=== PATIENT | female | born 1955 | race Caucasian/White ===

== ENCOUNTER → 2018-09-12 | Outpatient (CLI) | payer BC ==
--- NOTE | 2018-09-12 15:56 | CARD ---
MR#: [id number] Date of Study: 09/12/2018 Ordering Physician: RISSA DE LUNA, Referring Physician: RISSA DE LUNA, Tech: Sara Sanabria ISABELLA APPROVED REPORT EXAM: Two-dimensional and M-mode echocardiogram with Doppler and color Doppler. Other Information Quality : AverageHR: 73bpm Rhythm : NSR INDICATION Elevated BNP 2D DIMENSIONS RVDd3.1 (2.9-3.5cm)Left Atrium(2D)3.2 (1.6-4.0cm) IVSd0.9 (0.7-1.1cm)Aortic Root(2D)3.3 (2.0-3.7cm) LVDd5.0 (3.9-5.9cm)LVOT Diameter2.0 (1.8-2.4cm) PWd0.8 (0.7-1.1cm)LVDs3.4 (2.5-4.0cm) FS (%) 31.7 %SV69.7 ml LVEF(%)59.4 (>50%) M-Mode DIMENSIONS Left Atrium(MM)3.51 (2.5-4.0cm)Aortic Root3.38 (2.2-3.7cm) Aortic Valve AoV Peak Hernando.147.2cm/sAoV VTI28.6cm AO Peak GR.8.7mmHgLVOT Peak Hernando.121.1cm/s AO Mean GR.4mmHgAVA (VMAX)2.50cm2 XIOMY (VTI)2.60av1WD P 1/2 [id number] Mitral Valve MV E Tebyvgei05.3cm/sMV E Peak Gr.4mmHg MV DECEL [id number] A Sxiyqrql83.8cm/s MV E Mean Gr.1mmHgE/A Ratio1.0 MV A Veaihuzx603hy Pulmonary Valve PV Peak Qhvknfhk18.7cm/s Tricuspid Valve TR P. Eoskywrm299gj/sRAP YMEQBXGX5cxHk TR Peak Gr.12ayCtAFXF62tkSr Pulmonary Vein S1 Fhlyyfaz18.2cm/sD2 Ptipoout54.3cm/s PVa rsaqkfmx31kgdg LEFT VENTRICLE The left ventricle is normal size. There is normal left ventricular wall thickness. The left ventricu lar systolic function is normal and the ejection fraction is within normal range. The Ejection Fracti on is 55-60%. There is normal LV segmental wall motion. Transmitral Doppler flow pattern is Grade I-a bnormal relaxation pattern. RIGHT VENTRICLE The right ventricle is normal size. There is normal right ventricular wall thickness. The right ventr icular systolic function is normal. ATRIA The left atrium size is normal. The right atrium size is normal. The interatrial septum is intact wit h no evidence for an atrial septal defect or patent foramen ovale as noted on 2-D or Doppler imaging. AORTIC VALVE The aortic valve is normal in structure and function. The aortic valve is trileaflet. Doppler and Col or Flow revealed mild aortic regurgitation. There is no significant aortic valvular stenosis. There i s no aortic valvular vegetation. MITRAL VALVE The mitral valve is normal in structure and function. There is no evidence of mitral valve prolapse. There is no mitral valve stenosis. Doppler and Color-flow revealed trace mitral regurgitation. TRICUSPID VALVE The tricuspid valve is normal in structure and function. Doppler and Color Flow revealed trace tricus pid regurgitation. The PA pressure was estimated at 32 mmHg. There is no tricuspid valve prolapse or vegetation. There is no tricuspid valve stenosis. PULMONIC VALVE The pulmonary valve is normal in structure and function. Doppler and Color Flow revealed trace pulmon ic valvular regurgitation. There is no pulmonic valvular stenosis. GREAT VESSELS The aortic root is normal in size. The ascending aorta is normal in size. The IVC is normal in size a nd collapses >50% with inspiration. PERICARDIAL EFFUSION There is no evidence of significant pericardial effusion. Critical Notification Critical Value: No <Conclusion> The left ventricle is normal size. The left ventricular systolic function is normal and the ejection fraction is within normal range. The Ejection Fraction is 55-60%. There is no significant aortic valvular stenosis. Doppler and Color Flow revealed mild aortic regurgitation. Doppler and Color-flow revealed trace mitral regurgitation. Doppler and Color Flow revealed trace tricuspid regurgitation. The PA pressure was estimated at 32 mmHg. Signed by : Daniel Brown MD Electronically Approved : 09/12/2018 15:55:37
== END | disposition home or self-care (01) ==
LOC: ECHO 13:38
PROVIDERS: ATTEND Family Medicine
DX: I35.1 Nonrheumatic aortic (valve) insufficiency (principal)
CPT/HCPCS: 93306

== ENCOUNTER → 2019-07-22 | Outpatient (CLI) | payer MEDICARE, BC ==
[~2019-07-22] MED LIST: CELE200C PO; CETI10TA24 PO; FAMO-63 PO; OMEP40CA45 PO; TRAM50TA PO
[2019-07-22 09:25] LABS: BASO # 0.1 x10^3/uL (0.0-0.2); BASO % 1 % (0-3); EOS # 0.4 x10^3/uL (0.0-0.7); EOS % 6 % (0-3); HEMATOCRIT 40.2 % (36.0-47.0); HEMOGLOBIN 13.4 g/dL (12.0-15.5); LYMPH # 2.2 x10^3/uL (1.0-4.8); LYMPH % 37 % (24-48); MEAN CORPUSCULAR HEMOGLOBIN 29 pg (25-35); MEAN CORPUSCULAR HGB CONC 33 g/dL (31-37); MEAN CORPUSCULAR VOLUME 88 fL (79-100); MONO # 0.5 x10^3/uL (0.0-1.1); MONO % 8 % (0-9); NEUT # 2.9 x10^3/uL (1.8-7.7); NEUT % 48 % (31-73); PLATELET COUNT 253 x10^3/uL (140-400); RED BLOOD COUNT 4.59 x10^6/uL (3.50-5.40); RED CELL DISTRIBUTION WIDTH 14.3 % (11.5-14.5)
[2019-07-22 09:31] LABS: PROTHROMBIN TIME PATIENT 12.3 SEC (11.7-14.0)
[2019-07-22 09:37] LABS: ALBUMIN 3.4 g/dL (3.4-5.0); CALCIUM 8.7 mg/dL (8.5-10.1); CREATININE 0.9 mg/dL (0.6-1.0); GFR 62.8; POTASSIUM 4.1 mmol/L (3.5-5.1)
--- NOTE | 2019-07-22 13:22 | EKG ---
[facility] [address] [place] [address] Test Date: 2019-07-22 Test Time: 13:11:42 Pat Name: MARILEE DUENAS Department: Room: Gender: F Commodity Lead: RUMA : 1955 Requested By: MJ GARCIA Order Number: [id number] Reading MD: Abner Wheeler Measurements Intervals [place] Rate: 69 P: 24 DE: 136 QRS: 7 QRSD: 78 T: -20 QT: 378 QTc: 406 Interpretive Statements SINUS RHYTHM T ABNORMALITY IN ANTERIOR LEADS ABNORMAL ECG Electronically Signed On 07-22-2019 15:05:15 CDT by Abner Wheeler
--- NOTE | 2019-07-22 14:38 | RAD ---
CHEST PA LATERAL History: Hypertension. Preoperative right knee surgery. Comparison: None. Findings: Frontal and lateral views of the chest were obtained. The cardiomediastinal silhouette is normal. Pulmonary vasculature is normal. The lungs are clear. No pleural effusion or pneumothorax is seen. There is no acute bone abnormality. IMPRESSION: No acute cardiopulmonary process. Electronically signed by: Frankie Shelley MD (07/22/2019 2:35 PM) [id number]
== END | disposition home or self-care (01) ==
LOC: SURGPAT 13:19
PROVIDERS: ATTEND Orthopaedic Surgery
DX: Z01.818 Encounter for other preprocedural examination (principal); R94.31 Abnormal electrocardiogram [ECG] [EKG]; M17.12 Unilateral primary osteoarthritis, left knee; I10 Essential (primary) hypertension; Z88.0 Allergy status to penicillin; Z88.8 Allergy status to other drugs, medicaments and biological substances
CPT/HCPCS: 36415; 71046; 80048; 82040; 82306; 83036; 85025; 85610; 85651; 85730; 87641; 93005

== ENCOUNTER → 2019-11-14 | Outpatient (CLI) | payer MEDICARE, BC ==
[~2019-11-14] MED LIST changes: +CELE400C PO; +FERR-36 PO; +HYDR-2761 PO; +HYDR-3135 PO; +VITA25006 PO; +WARF3TAB50 PO; +WARF5TAB2 PO
[2019-11-14 10:37] LABS: BASO # 0.1 x10^3/uL (0.0-0.2); BASO % 1 % (0-3); EOS # 0.3 x10^3/uL (0.0-0.7); EOS % 5 % (0-3); HEMATOCRIT 43.7 % (36.0-47.0); HEMOGLOBIN 14.4 g/dL (12.0-15.5); LYMPH # 2.5 x10^3/uL (1.0-4.8); LYMPH % 40 % (24-48); MEAN CORPUSCULAR HEMOGLOBIN 29 pg (25-35); MEAN CORPUSCULAR HGB CONC 33 g/dL (31-37); MEAN CORPUSCULAR VOLUME 87 fL (79-100); MONO # 0.4 x10^3/uL (0.0-1.1); MONO % 7 % (0-9); NEUT # 2.9 x10^3/uL (1.8-7.7); NEUT % 47 % (31-73); PLATELET COUNT 260 x10^3/uL (140-400); RED BLOOD COUNT 4.99 x10^6/uL (3.50-5.40); RED CELL DISTRIBUTION WIDTH 14.5 % (11.5-14.5); WHITE BLOOD COUNT 6.2 x10^3/uL (4.0-11.0)
[2019-11-14 10:46] LABS: ALBUMIN 3.6 g/dL (3.4-5.0); C-REACTIVE PROTEIN 2.8 mg/L (0-3.3); CREATININE 1.1 mg/dL (0.6-1.0); GFR 49.8; POTASSIUM 3.8 mmol/L (3.5-5.1); PROTHROMBIN TIME PATIENT 12.6 SEC (11.7-14.0)
[2019-11-15 00:07] LABS: HEMOGLOBIN A1C 6.1 % (4.8-5.6)
== END | disposition home or self-care (01) ==
LOC: SURGPAT 09:56
PROVIDERS: ATTEND Orthopaedic Surgery
DX: Z01.818 Encounter for other preprocedural examination (principal); Z11.59 Encounter for screening for other viral diseases; M17.12 Unilateral primary osteoarthritis, left knee; I10 Essential (primary) hypertension; Z79.899 Other long term (current) drug therapy; Z88.0 Allergy status to penicillin
CPT/HCPCS: 36415; 80048; 82040; 82306; 83036; 85025; 85610; 85730; 86140; 87641; U0003

== ENCOUNTER 2019-11-19 10:07 | Inpatient (IN) | payer MEDICARE, BC ==
[2019-11-19] VITALS (9 sets, daily range): BP systolic 104–123; BP diastolic 58–72
[~2019-11-19] VITALS: Ht 154.9 cm; Wt 93.0 kg
[~2019-11-19 10:07] MED LIST changes: -CELE400C PO; +CELECOXIB 100 MG CAPSULE. PO PRN; -CETI10TA24 PO; +CETI10TA74 PO; +DEXAMETHASONE SOD PHOS 4 MG/ML VIAL ONE; -FERR-36 PO; +GABAPENTIN 300 MG CAPSULE. PO PRN; -HYDR-3135 PO; +IV RINGERS,LACTATED 1000ML 1,000 ML IV SCH; +LIDOCAINE 2% PF 5 ML VIAL. ONE; +MORPHINE SULFATE 5 MG, KETOROLAC 30MG VIAL 30 MG, ROPIVacaine 0.5% PF 60 ML, EPINEPHrin... INT ART ONE; +ONDANSETRON PF 4 MG/2 ML VIAL. IV PRN; +ONDANSETRON PF 4 MG/2 ML VIAL. ONE; +PROCHLORPERAZINE 10 MG/2 ML VIAL. IV PRN; +PROPOFOL 10 MG/ML (20ML) VIAL. IV ONE; -WARF3TAB50 PO; -WARF5TAB2 PO
[2019-11-19] MEDS ORDERED: FERR-36 PO (10:39)
[2019-11-19] MEDS ORDERED: WARF5TAB2 PO (10:40)
--- NOTE | 2019-11-19 10:40 | NUR ---
PT ALLERGY TO PCN, VERIFIED WITH DR GARCIA. STATES UNLESS KNOWN ANAPHYLAXIS REACTION, PROCEED WITH ANCEF. PT UNAWARE OF WHAT ALLERGY TO PCN, STATES WAS YOUNG AND MOTHER JUST STATED HAD AN UNKOWN ALLERGY TO IT. WILL PROCEED DIRECTED WITH ANCEF 2GM PREOP.
[2019-11-19] MEDS ORDERED: CELE400C PO (10:41)
[2019-11-19] MEDS ORDERED: ACETAMINOPHEN 500 MG TABLET PO ONE ×2 (10:44→11:15)
[2019-11-19] MEDS ORDERED: FAMOTIDINE 20 MG/2 ML VIAL ONE (11:29)
[2019-11-19] MEDS ORDERED: MIDAZOLAM HCL/PF 5 MG/5 ML VIAL. ONE (11:29)
[2019-11-19] MEDS ORDERED: VANCOMYCIN 1 GM VIAL. ONE (11:32)
[2019-11-19] MEDS: IV NORMAL SALINE 1000ML BAG 1,000 ML IV SCH ×2 (11:34→12:05)
[2019-11-19] MEDS ORDERED: SEVOFLURANE > 120 MINUTES. IH ONE (11:39)
[2019-11-19] MEDS ORDERED: oxyCODONE IR 5 MG TABLET PO PRN (11:45)
[2019-11-19] MEDS ORDERED: diphenhydrAMINE 50 MG/ML VIAL IVP PRN (11:45)
[2019-11-19] MEDS ORDERED: fentaNYL PF VIAL 100 MCG/2 ML VIAL IVP PRN (11:45)
[2019-11-19] MEDS ORDERED: DEXTROSE 50% 25 GM / 50ML DISP.SYRIN. IV PRN (11:45)
[2019-11-19] MEDS ORDERED: ZOLPIDEM 5 MG TABLET. PO PRN (11:45)
[2019-11-19] MEDS ORDERED: PROCHLORPERAZINE 5 MG TABLET. PO PRN (11:45)
[2019-11-19] MEDS ORDERED: CALCIUM CARBONATE 500 MG TAB.CHEW PO PRN (11:45)
[2019-11-19] MEDS ORDERED: MORPHINE SULFATE 2 MG/ML VIAL. IVP PRN (11:45)
[2019-11-19] MEDS ORDERED: 0.9 % SODIUM CHLORIDE 10 ML DISP.SYRIN. IV PRN (11:45)
[2019-11-19] MEDS: ONDANSETRON PF 4 MG/2 ML VIAL. IVP SCH ×3 (12:00→22:35)
[2019-11-19] MEDS: ONDANSETRON ODT 4 MG TAB.RAPDIS. PO SCH ×3 (12:00→22:40)
[2019-11-19] MEDS ORDERED: TRANEXAMIC ACID 1,000 MG in IV NORMAL SALINE 50ML 50 ML INJ ONE ×2 (12:00→13:00)
--- NOTE | 2019-11-19 13:27 | PDOC4 ---
Operative Note Operative Note Date of surgery: 11/19/2019 Preoperative diagnosis: Degenerative joint disease left knee Postoperative diagnosis: Same Operative procedure: Left total knee arthroplasty Surgeon: Gale Jawbone Puller: Michael bazan Anesthesia: General Estimated blood loss: 25 cc Complications: None Operative indications: Please see my previous clinic note and dictated history and physical of today for detailed operative indications Operative text: Patient was identified procedure verified patient placed in the supine position on the operating table. After adequate amounts of general anesthesia were administered the left lower extremity was prepped and draped in the standard sterile fashion with a thigh tourniquet. After timeout was performed patient procedure identified and verified the left lower extremity was exsanguinated by elevation and tourniquet inflated to 350 mils of mercury and a midline incision was made with a medial parapatellar approach patella was everted fat pad was excised she was noted to have most notable wear in the medial compartment with no evidence of flexion contracture. The intramedullary femoral guide was drilled and placed for a standard distal femur cut. Distal femur was sized at a size 5 and translated 2 mm superiorly to avoid any notching AP chamfer cuts were made cruciate ligaments were excised as they were compromised and tibial alignment guide was aligned to the second toe with care. With retractors protecting the collateral ligaments and posterior structures tibial cut was made and tibia sized at a size 3. Flexion extension gaps were assessed and were excellent medial lateral stability balance. Tibia was drilled and broached with a size 3 component a size 5 posterior stabilized femoral trial was placed after excising the bone in the box area. A 26 mm bi concave patella was reamed and noted excellent tracking. Trial components were removed thorough irrigation carried out with normal saline solution and bleeding points were controlled by electrocautery. The following [employer] components were cemented in place using polymethyl methacrylate cement: A size 3 journey 2 tibial component nonporous. A size 5 Oxinium posterior stabilized femoral component. A 26 mm bi concave patella component, and a 11 mm articular insert provided excellent balance with full range of motion. After cement was dry and excess cement removed a size 11 mm journey 2 articular insert was locked into place, Hemovac drain and articular pain catheter were placed pain catheter mixture was injected throughout the joint capsule, 1 g vancomycin was sprinkled throughout the joint capsule and closure accomplished with #2 Ethibond suture in an interrupted fashion reinforced with #1 PDS strata fix suture. Subcutaneous closure with buried Vicryl suture subcuticular 3-0 strata fix Monocryl followed by a flora dressing with Acticoat. Toes were noted to be warm pink following deflation of the tourniquet and patient was returned to recovery room in stable condition having tolerated procedure well. Michael Butt was present for the procedure and assisted in the positioning prepping draping retraction closure and dressings MJ GARCIA MD Nov 19, 2019 13:27
[2019-11-19 13:45] LABS: PROTHROMBIN TIME PATIENT 13.6 SEC (11.7-14.0)
[2019-11-19] MEDS ORDERED: fentaNYL PF VIAL 100 MCG/2 ML VIAL ONE (14:08)
[2019-11-19] MEDS ORDERED: IV RINGERS,LACTATED 1000ML 1,000 ML IV SCH (14:08)
[2019-11-19] MEDS: fentaNYL PF VIAL 100 MCG/2 ML VIAL IV PRN ×2 (14:12→14:32)
[2019-11-19] MEDS ORDERED: fentaNYL PF VIAL 100 MCG/2 ML VIAL IV PRN (14:15)
[2019-11-19] MEDS ORDERED: PROCHLORPERAZINE 10 MG/2 ML VIAL. IV PRN (14:15)
[2019-11-19] MEDS ORDERED: LIDOCAINE 1% PF 2 ML VIAL. ID PRN (14:15)
[2019-11-19] MEDS ORDERED: ONDANSETRON PF 4 MG/2 ML VIAL. IV PRN (14:15)
[2019-11-19] MEDS ORDERED: HYDROmorphone 2 MG/ML VIAL IV PRN (14:15)
--- NOTE | 2019-11-19 14:15 | RAD ---
Left knee 2 views. HISTORY: Post arthroplasty 2 views left knee show a total joint prosthesis in place. There is no acute fracture. There is a drainage tube. IMPRESSION: 1. Operative changes from left knee arthroplasty. Electronically signed by: Narayan Garcia MD (11/19/2019 2:12 PM) [facility]
[2019-11-19] MEDS: MORPHINE SULFATE 2 MG/ML VIAL. IV PRN ×2 (14:38→14:55)
[2019-11-19] MEDS ORDERED: HYDROmorphone 2 MG/ML VIAL ONE (15:05)
--- NOTE | 2019-11-19 15:15 | NUR ---
Rec'd from PACU per bed, sleeping, arouses when name called, states discomfort level 8/10, falls back to sleep, LLE elevated with ice pack for pain management, JN wolff & SCD on RLE, BRETT to LLE, IVF infusing into left dorsal hand, O2 @ 3L/nc, side rails up X3, call light in lap, no family members present at this time
[2019-11-19] MEDS ORDERED: WARFARIN 7.5 MG TABLET. PO ONE (16:00)
[2019-11-19] MEDS: PANTOPRAZOLE 40 MG TABLET.DR. PO SCH (16:30)
[2019-11-19] MEDS: FERROUS SULFATE 325 MG TABLET. PO SCH (18:12)
[2019-11-19] MEDS: KETOROLAC 30MG VIAL 30 MG, BUPIVACAINE MPF 0.25% 20 ML, EPINEPHrine 0.5 MG in TOTAL VOL... INT ART SCH (18:14)
--- NOTE | 2019-11-19 18:41 | NUR ---
IAC med unable to infuse.
[2019-11-19] MEDS: oxyCODONE IR 5 MG TABLET PO PRN (22:38)
--- NOTE | 2019-11-19 22:45 | NUR ---
Reattempted to infuse IAC without success.
[2019-11-20] MEDS: oxyCODONE IR 5 MG TABLET PO PRN ×5 (03:03→22:05)
[2019-11-20 03:10] VITALS: BP 124/62
[2019-11-20 05:05] LABS: HEMATOCRIT 36.9 % (36.0-47.0); HEMOGLOBIN 12.3 g/dL (12.0-15.5)
[2019-11-20 05:07] VITALS: BP 112/57
[2019-11-20] MEDS: PANTOPRAZOLE 40 MG TABLET.DR. PO SCH (05:43)
[2019-11-20] MEDS: KETOROLAC 30MG VIAL 30 MG, BUPIVACAINE MPF 0.25% 20 ML, EPINEPHrine 0.5 MG in TOTAL VOL... INT ART SCH (05:44)
[2019-11-20] MEDS: ONDANSETRON PF 4 MG/2 ML VIAL. IVP SCH (05:44)
[2019-11-20] MEDS: traMADol 50 MG TABLET PO SCH ×3 (05:45→17:09)
[2019-11-20] MEDS: ONDANSETRON ODT 4 MG TAB.RAPDIS. PO SCH (05:45)
[2019-11-20] MEDS ORDERED: MAGNESIUM HYDROXIDE 2,400 MG/30 ML ORAL.SUSP. PO PRN (06:00)
--- NOTE | 2019-11-20 07:42 | PDOC ---
GENERAL General: vss and afebrile. awake and alert. thinks pain is decently controlled. chest clear, heart regular, abdomen benign. Hb 12.3 and INR 1.4. encouraged therapy. continue same. VITAL SIGNS/I&O Vital Signs/I&O: Vital Signs Date Time Temp Pulse Resp B/P (MAP) Pulse Ox O2 Delivery O2 Flow Rate FiO2 11/20/19 05:07 98.0 66 18 112/57 (75) 97 Room Air 98.0 11/19/19 17:45 2.0 I & O 11/19/19 11/19/19 11/20/19 15:00 23:00 07:00 Intake Total 600 ml 200 ml 700 ml Output Total 25 ml 820 ml 240 ml Balance 575 ml -620 ml 460 ml ALLERGIES Allergies: Allergies Coded Allergies Type Severity Reaction Last Updated Verified Penicillins Allergy Intermediate 11/18/19 Yes Sulfa (Sulfonamide Antibiotics) Adverse Reaction Intermediate Hives 11/14/19 Yes nitrofurantoin Adverse Reaction Intermediate Hives 11/14/19 Yes phentermine Adverse Reaction Intermediate Hives 11/14/19 Yes pregabalin Adverse Reaction Intermediate Hives 11/14/19 Yes sulfamethoxazole Adverse Reaction Intermediate Hives 11/14/19 Yes trimethoprim Adverse Reaction Intermediate Hives 11/14/19 Yes MEDS Medications: Current Medications Medications (Trade) Dose Ordered Sig/Conner Route PRN Reason Start Time Stop Time Status Last Admin Dose Admin Acetaminophen (Tylenol) 1,000 mg 1X ONCE PO 11/19/19 11:15 11/19/19 11:16 DC 11/19/19 11:00 Vancomycin HCl (Vancomycin) 1 gm STK-MED ONCE .ROUTE 11/19/19 11:32 11/19/19 11:33 DC 11/19/19 12:05 Tranexamic Acid 1000 mg/Sodium Chloride 60 ml @ 60 mls/hr 1X PERIOP ONCE INJ 11/19/19 12:00 11/19/19 12:59 DC 11/19/19 11:50 Tranexamic Acid 1000 mg/Sodium Chloride 60 ml @ 60 mls/hr 1X PERIOP ONCE INJ 11/19/19 13:00 11/19/19 13:59 DC 11/19/19 13:05 Morphine Sulfate (Morphine Sulfate) 2 mg PRN Q1HR PRN IVP PAIN 11/19/19 11:45 11/19/19 18:12 Warfarin Sodium (Coumadin) 7.5 mg 1X ONCE PO 11/19/19 16:00 11/19/19 16:01 DC 11/19/19 18:12 Ferrous Sulfate (Feosol) 325 mg BIDWMEALS PO 11/19/19 17:00 11/19/19 18:12 Sodium Chloride 1,000 ml @ 40 mls/hr Q24H IV 11/19/19 11:34 11/19/19 12:05 Ketorolac Tromethamine 30 mg/Bupivacaine HCl 20 ml/ Epinephrine HCl 0.5 mg/ Miscellaneous 43 ml @ 258 mls/hr Q12H INT ART 11/19/19 18:00 11/20/19 06:09 DC 11/19/19 18:14 Ondansetron HCl (Zofran) 4 mg Q6HRS IVP 11/19/19 12:00 11/20/19 06:01 DC 11/20/19 05:44 Oxycodone HCl (Roxicodone) 10 mg PRN Q4HRS PRN PO Pain score 7-11/19/19 11:45 11/20/19 03:03 Cefazolin Sodium/ Dextrose 50 ml @ 100 mls/hr Q6H IV 11/19/19 11:45 11/19/19 14:41 DC 11/19/19 11:35 Pantoprazole Sodium (Protonix) 40 mg DAILYAC PO 11/19/19 16:30 11/20/19 05:43 Fentanyl Citrate (Fentanyl 2ml Vial) 50 mcg PRN Q5MIN PRN IV MODERATE TO SEVERE PAIN 11/19/19 14:15 11/19/19 15:56 DC 11/19/19 14:32 Morphine Sulfate (Morphine Sulfate) 1 mg PRN Q10MIN PRN IV SEVERE PAIN 7-11/19/19 14:15 11/19/19 15:56 DC 11/19/19 14:55 Hydromorphone HCl (Dilaudid) 0.5 mg PRN Q10MIN PRN IV SEV PAIN, Second choice 11/19/19 14:15 11/19/19 15:56 DC 11/19/19 15:07 Cefazolin Sodium/ Dextrose 50 ml @ 100 mls/hr Q6H IV 11/19/19 17:00 11/20/19 05:29 DC 11/20/19 05:10 LAB Lab: Laboratory Tests Test 11/19/19 10:50 11/20/19 04:40 Prothrombin Time 13.6 SEC (11.7-14.0) 17.0 SEC (11.7-14.0) H Prothrombin Time INR 1.1 (0.8-1.1) 1.4 (0.8-1.1) H Hemoglobin 12.3 g/dL (12.0-15.5) Hematocrit 36.9 % (36.0-47.0) Mean Corpuscular Hemoglobin Concent 33 g/dL (31-37) Laboratory Tests 11/20/19 04:40 Justicifation of Admission Dx: Justifications for Admission: Justification of Admission Dx: Yes Comments: RISSA YEH MD Nov 20, 2019 07:42
[2019-11-20] MEDS: FERROUS SULFATE 325 MG TABLET. PO SCH ×2 (08:00→17:00)
[2019-11-20] MEDS: ACETAMINOPHEN 500 MG TABLET PO SCH ×3 (08:32→20:33)
[2019-11-20] MEDS: SENNOSIDES/DOCUSATE 8.6/50MG TABLET. PO SCH (08:32)
[2019-11-20] MEDS ORDERED: MELOXICAM 7.5 MG TABLET PO SCH (09:00)
[2019-11-20] MEDS: MULTIVITAMIN with MINERAL TABLET. PO SCH (09:00)
[2019-11-20] MEDS: ONDANSETRON ODT 4 MG TAB.RAPDIS. PO PRN ×2 (11:13→16:56)
[2019-11-20] MEDS: IV NORMAL SALINE 1000ML BAG 1,000 ML IV SCH (11:34)
[2019-11-20] MEDS ORDERED: ONDANSETRON PF 4 MG/2 ML VIAL. IVP PRN (12:00)
--- NOTE | 2019-11-20 15:04 | NUR ---
Pharmacy Warfarin Dosing Note S:Pharmacy consulted to assist with anticoagulation therapy started 11/19/19 with target INR: O:MARILEE DUENAS is a 64 year old F with TKA LABS: Last INR: 1.4 Last HGB: 12.3 Last HCT: 36.9 Last PLT: Last dose of 7.5 mg given on 11/19/19 at 1700 Previous Regimen: Vitamin K given: N Drug Interaction Changes: Ongoing Drug Interactions: MELOXICAM A:INR of 1.4 is below desired range. Target range for this patient is: P: Warfarin dose: 5 mg Today at 1600 Bridge Therapy: None Next INR due IN AM Pharmacy anticoagulation service will continue to follow. AGUSTINA VENTURA [facility], 11/20/19 [id number]
[2019-11-20] MEDS: CELECOXIB 100 MG CAPSULE. PO SCH (15:24)
--- NOTE | 2019-11-20 15:56 | CONS ---
DATE OF CONSULTATION: PHYSICIAN REQUESTING CONSULTATION: Dr. Osbaldo Beasley. CHIEF COMPLAINT AND HISTORY OF PRESENT ILLNESS: This 64-year-old white female who is well known to me for followup in the office. She has end-stage arthritis of her left knee and had a total knee replacement on 11/19/2019. We are following her medically for postoperatively. PAST MEDICAL HISTORY: Remarkable for GERD, osteoarthritis, recurrent sinus, and urinary tract infections. MEDICATIONS: Brought with the patient, listed on the computer. ALLERGIES: SHE IS ALLERGIC TO PENICILLIN. SOCIAL HISTORY: She is nonsmoker, nondrinker, does not use drugs, is retired, lives at home with her . FAMILY HISTORY: Positive for diabetes, Parkinson's disease and a history of leukemia. REVIEW OF SYSTEMS: Remarkable for left knee pain and she would expect following a knee replacement. Otherwise, completely negative review of systems. PHYSICAL EXAMINATION: GENERAL: She is a well-developed, well-nourished white female, in no acute distress. VITAL SIGNS: Stable. She is afebrile. Hemoglobin postop is 12.3 and INR is 1.4 this morning. HEAD, EYES, EARS, NOSE AND THROAT: Remarkable for glasses. NECK: Supple, without adenopathy or thyromegaly. CHEST: Clear to auscultation and percussion. HEART: Regular rate and rhythm without S3, S4 or murmur. ABDOMEN: Soft, nontender, without hepatosplenomegaly or masses. EXTREMITIES: Without cyanosis, clubbing, edema. Her left knee is wrapped. She has good neurovascular function of her left lower extremity. NEUROLOGIC: She is intact. IMPRESSION: 1. Status post left total knee replacement. 2. Other problems as listed above. PLAN: Continue anticoagulation. Encourage therapy. We will follow along for the stay. RISSA DE LUNA MD DR: ANTONIA/benedict JOB#: [id number] / [id number]
[2019-11-20] MEDS ORDERED: BISACODYL 10 MG SUPP.RECT. PR PRN (16:00)
[2019-11-20] MEDS ORDERED: WARFARIN 5 MG TABLET. PO ONE (16:00)
[2019-11-20 18:10] VITALS: BP 115/64
--- NOTE | 2019-11-20 20:45 | PDOC ---
PROGRESS NOTES Subjective Subjective Problems overnight: Reports some muscle spasm but getting up and around reasonably well Objective Vital Signs Vital Signs Date Time Temp Pulse Resp B/P (MAP) Pulse Ox O2 Delivery O2 Flow Rate FiO2 11/20/19 18:35 Room Air 11/20/19 18:10 97.9 71 16 115/64 (81) 96 97.9 11/19/19 17:45 2.0 Physical Exam Leighton dressing intact, intra-articular catheter not infusing well, good early range of motion distal neurovascular status intact Labs Laboratory Tests Test 11/19/19 10:50 11/20/19 04:40 Prothrombin Time 13.6 SEC (11.7-14.0) 17.0 SEC (11.7-14.0) Prothromb Time International Ratio 1.1 (0.8-1.1) 1.4 (0.8-1.1) Hemoglobin 12.3 g/dL (12.0-15.5) Hematocrit 36.9 % (36.0-47.0) Mean Corpuscular Hemoglobin Concent 33 g/dL (31-37) Laboratory Tests Test 11/20/19 04:40 Hemoglobin 12.3 g/dL (12.0-15.5) Hematocrit 36.9 % (36.0-47.0) Mean Corpuscular Hemoglobin Concent 33 g/dL (31-37) Prothrombin Time 17.0 SEC (11.7-14.0) Prothromb Time International Ratio 1.4 (0.8-1.1) Imaging Postop left knee x-rays show well aligned and sized total knee arthroplasty components Assessment Assessment POD#1 left total knee arthroplasty Plan Plan of Care Continue mobilize with physical therapy, Coumadin anticoagulation clinic Plan outpatient physical therapy at [facility] in [place], INR measurements to be arranged Justicifation of Admission Dx: Justifications for Admission: Justification of Admission Dx: Yes (Needs better pain control and adequate safety on ambulation/transfers) MJ GARCIA MD Nov 20, 2019 20:45
[2019-11-21] MEDS: ACETAMINOPHEN 500 MG TABLET PO SCH ×4 (02:38→21:00)
[2019-11-21] MEDS: oxyCODONE IR 5 MG TABLET PO PRN (02:39)
[2019-11-21 04:40] LABS: HEMATOCRIT 35.4 % (36.0-47.0); HEMOGLOBIN 11.8 g/dL (12.0-15.5)
[2019-11-21 04:45] LABS: PROTHROMBIN TIME PATIENT 26.4 SEC (11.7-14.0)
[2019-11-21] MEDS: PANTOPRAZOLE 40 MG TABLET.DR. PO SCH (05:56)
[2019-11-21] MEDS: traMADol 50 MG TABLET PO SCH ×3 (05:56→10:52)
[2019-11-21 06:00] VITALS: BP 102/51
[2019-11-21] MEDS: ONDANSETRON ODT 4 MG TAB.RAPDIS. PO PRN (07:08)
[2019-11-21] MEDS: FERROUS SULFATE 325 MG TABLET. PO SCH ×2 (08:00→10:53)
--- NOTE | 2019-11-21 08:00 | NUR ---
woke up nauseated this am. Dr. Beasley here. will change pain medication. medicated with Zofran and will change pain medication to Lortab.
[2019-11-21] MEDS: SENNOSIDES/DOCUSATE 8.6/50MG TABLET. PO SCH (08:38)
[2019-11-21] MEDS: MULTIVITAMIN with MINERAL TABLET. PO SCH (08:38)
[2019-11-21] MEDS: CELECOXIB 100 MG CAPSULE. PO SCH (08:38)
--- NOTE | 2019-11-21 08:50 | PDOC ---
GENERAL General: vss and afebrile. Hb 11.8 and INR 2.4 this am. more pain this am but good night's sleep. ongoing nausea and ortho to change pain regimen. chest clear, heart regular, abdomen benign, no bm since surgery. eager for therapy. VITAL SIGNS/I&O Vital Signs/I&O: Vital Signs Date Time Temp Pulse Resp B/P (MAP) Pulse Ox O2 Delivery O2 Flow Rate FiO2 11/21/19 07:38 Room Air 11/21/19 06:00 97.7 64 16 102/51 (68) 96 97.7 I & O 11/20/19 11/20/19 11/21/19 15:00 23:00 07:00 Intake Total 360 ml 440 ml 600 ml Output Total 50 ml Balance 360 ml 390 ml 600 ml ALLERGIES Allergies: Allergies Coded Allergies Type Severity Reaction Last Updated Verified Penicillins Allergy Intermediate 11/18/19 Yes Sulfa (Sulfonamide Antibiotics) Adverse Reaction Intermediate Hives 11/14/19 Yes nitrofurantoin Adverse Reaction Intermediate Hives 11/14/19 Yes phentermine Adverse Reaction Intermediate Hives 11/14/19 Yes pregabalin Adverse Reaction Intermediate Hives 11/14/19 Yes sulfamethoxazole Adverse Reaction Intermediate Hives 11/14/19 Yes trimethoprim Adverse Reaction Intermediate Hives 11/14/19 Yes MEDS Medications: Current Medications Medications (Trade) Dose Ordered Sig/Conner Route PRN Reason Start Time Stop Time Status Last Admin Dose Admin Multivitamins (Thera M Plus) 1 tab DAILY PO 11/20/19 09:00 11/21/19 08:38 Senna/Docusate Sodium (Senna Plus) 1 tab DAILY PO 11/20/19 09:00 11/21/19 08:38 Acetaminophen (Tylenol) 1,000 mg Q6H PO 11/20/19 09:00 11/21/19 02:38 Ondansetron HCl (Zofran Odt) 4 mg PRN Q6HRS PRN PO Nausea/vomiting, 1st choice 11/20/19 12:00 11/21/19 07:08 Warfarin Sodium (Coumadin) 5 mg 1X WARF ONCE PO 11/20/19 16:00 11/20/19 16:01 DC 11/20/19 16:57 Celecoxib (CeleBREX) 200 mg DAILY PO 11/20/19 14:00 11/21/19 08:38 LAB Lab: Laboratory Tests Test 11/21/19 02:54 Hemoglobin 11.8 g/dL (12.0-15.5) L Hematocrit 35.4 % (36.0-47.0) L Mean Corpuscular Hemoglobin Concent 33 g/dL (31-37) Prothrombin Time 26.4 SEC (11.7-14.0) H Prothrombin Time INR 2.4 (0.8-1.1) H Laboratory Tests 11/21/19 02:54 Justicifation of Admission Dx: Justifications for Admission: Justification of Admission Dx: Yes (Needs better pain control and adequate safety on ambulation/transfers) RISSA DE LUNA MD Nov 21, 2019 08:50
--- NOTE | 2019-11-21 09:36 | PDOC ---
PROGRESS NOTES Subjective Subjective Problems overnight: Ambulation and transfers have been improved as the knee is feeling somewhat better although she is very constipated and nauseous Objective Vital Signs Vital Signs Date Time Temp Pulse Resp B/P (MAP) Pulse Ox O2 Delivery O2 Flow Rate FiO2 11/21/19 07:38 Room Air 11/21/19 06:00 97.7 64 16 102/51 (68) 96 97.7 11/19/19 17:45 2.0 Physical Exam Good range of motion stability distal neurovascular status intact flora dressing intact drain and pain catheter removed successfully Labs Laboratory Tests Test 11/19/19 10:50 11/20/19 04:40 11/21/19 02:54 Prothrombin Time 13.6 SEC (11.7-14.0) 17.0 SEC (11.7-14.0) 26.4 SEC (11.7-14.0) Prothromb Time International Ratio 1.1 (0.8-1.1) 1.4 (0.8-1.1) 2.4 (0.8-1.1) Hemoglobin 12.3 g/dL (12.0-15.5) 11.8 g/dL (12.0-15.5) Hematocrit 36.9 % (36.0-47.0) 35.4 % (36.0-47.0) Mean Corpuscular Hemoglobin Concent 33 g/dL (31-37) 33 g/dL (31-37) Laboratory Tests Test 11/21/19 02:54 Hemoglobin 11.8 g/dL (12.0-15.5) Hematocrit 35.4 % (36.0-47.0) Mean Corpuscular Hemoglobin Concent 33 g/dL (31-37) Prothrombin Time 26.4 SEC (11.7-14.0) Prothromb Time International Ratio 2.4 (0.8-1.1) Assessment Assessment POD#2 total knee arthroplasty Plan Plan of Care Has severe nausea, could barely keep down her meal and hopefully will be able to participate in physical therapy today. Emily is really not controlling it nor are other antiemetics. We are adjusting pain medications to help manage her tolerance and nausea issues Treating constipation. Continuing to mobilize with physical therapy, Coumadin anticoagulation Plan outpatient physical therapy on discharge[facility]: Justifications for Admission: Justification of Admission Dx: Yes (Severe nausea, adjusting pain medications and antiemetics, to achieve better pain control and also treat constipation) MJ GARCIA MD Nov 21, 2019 09:36
[2019-11-21] MEDS: HYDROcodone/APAP 10/325 1 TAB TABLET PO PRN ×4 (09:42→21:02)
[2019-11-21] MEDS: IV NORMAL SALINE 1000ML BAG 1,000 ML IV SCH (10:51)
--- NOTE | 2019-11-21 13:15 | NUR ---
denies nausea at lunchtime. tolerated 1st rehab
--- NOTE | 2019-11-21 13:25 | NUR ---
Pharmacy Warfarin Dosing Note S:Pharmacy consulted to assist with anticoagulation therapy started 11/19/19 with target INR: 1.6-2.5 O:MARILEE DUENAS is a 64 year old F with TKA LABS: Last INR: 2.4 Last HGB: 11.8 Last HCT: 35.4 Last PLT: - Last dose of 5 mg given on 11/20/19 at 1657 Previous Regimen: Vitamin K given: N Drug Interaction Changes: Same Interacting Drug Ongoing Drug Interactions: CELEBREX A:INR of 2.4 is within desired range. Target range for this patient is: P: Warfarin dose: Hold dose today with rapid jump in INR Bridge Therapy: None Next INR due tomorrow Pharmacy anticoagulation service will continue to follow. Kimberly Umana RPH, 11/21/19 [id number]
[2019-11-21] MEDS ORDERED: BISACODYL 5 MG TABLET.DR. PO PRN (14:30)
[2019-11-21 14:46] VITALS: BP 109/56
--- NOTE | 2019-11-21 15:08 | PATHOLOGY ---
[facility] Accession Number: [id number] . 01 Material submitted: . knee - LEFT KNEE AND TISSUE. Modifiers: left . 01 Clinical history: . OA left knee . 02 Diagnosis: Segments of bone and soft tissue, left total knee arthroplasty: - Focally advanced degenerative arthritis. (JPM:repairer auto clocks; 11/21/2019) MBR 11/21/2019 1244 Local . 02 Electronically signed: . Moises Queen MD, Pathologist NPI- [id number] . 01 Gross description: . The specimen is received in formalin, labeled "Shad, Perlita, left knee and tissue" and consists of multiple segments of bone including the tibial plateau with a small amount of attached yellow lobulated soft tissue measuring 16.5 x 11.0 x 2.1 cm. A partial segment of meniscus is present. The articular surfaces are smooth to roughened with focal eburnation. Radiology Receptionist sections are submitted in A1-A2 with A2 following decalcification. (SDY; 11/19/2019) SYU/SYU 11/21/2019 1243 Local . 02 Pathologist provided ICD-10: M17.12 . 02 CPT . 138104, 501124 Specimen Comment: A courtesy copy of this report has been sent to [phone], [phone] Specimen Comment: [id number] Specimen Comment: Report sent to / DR DE LUNA Performed at: 01 [facility] [address], [place] [id number] MD Edenilson Dos Santos MD Phone: [phone] Performed at: 02 [facility] [address], [place] [id number] MD Moises Queen MD Phone: [phone]
[2019-11-21 18:00] VITALS: BP 109/60
[2019-11-22] MEDS: ACETAMINOPHEN 500 MG TABLET PO SCH ×2 (03:00→07:41)
[2019-11-22 05:07] LABS: HEMATOCRIT 33.8 % (36.0-47.0); HEMOGLOBIN 11.1 g/dL (12.0-15.5)
[2019-11-22 05:17] LABS: PROTHROMBIN TIME PATIENT 25.4 SEC (11.7-14.0)
[2019-11-22] MEDS: traMADol 50 MG TABLET PO SCH ×3 (05:39→11:45)
[2019-11-22 05:40] VITALS: BP 112/68
[2019-11-22] MEDS: HYDROcodone/APAP 10/325 1 TAB TABLET PO PRN ×2 (07:39→11:45)
[2019-11-22] MEDS: PANTOPRAZOLE 40 MG TABLET.DR. PO SCH (07:40)
[2019-11-22] MEDS: CELECOXIB 100 MG CAPSULE. PO SCH (07:40)
[2019-11-22] MEDS: MULTIVITAMIN with MINERAL TABLET. PO SCH (07:41)
[2019-11-22] MEDS: SENNOSIDES/DOCUSATE 8.6/50MG TABLET. PO SCH (07:41)
[2019-11-22] MEDS: FERROUS SULFATE 325 MG TABLET. PO SCH (07:41)
--- NOTE | 2019-11-22 07:41 | PDOC ---
GENERAL General: vss and afebrile. did well in therapy yesterday. pain better today. chest clear, heart regular, abdomen benign. Hb 11.1 and INR 2.3. expect dc today. plan is for outpatient therapy. VITAL SIGNS/I&O Vital Signs/I&O: Vital Signs Date Time Temp Pulse Resp B/P (MAP) Pulse Ox O2 Delivery O2 Flow Rate FiO2 11/22/19 05:40 98.1 78 20 112/68 (83) 94 Room Air 98.1 11/21/19 19:59 3.0 I & O 11/21/19 11/21/19 11/22/19 15:00 23:00 07:00 Intake Total 100 ml Balance 100 ml ALLERGIES Allergies: Allergies Coded Allergies Type Severity Reaction Last Updated Verified Penicillins Allergy Intermediate 11/18/19 Yes Sulfa (Sulfonamide Antibiotics) Adverse Reaction Intermediate Hives 11/14/19 Yes nitrofurantoin Adverse Reaction Intermediate Hives 11/14/19 Yes phentermine Adverse Reaction Intermediate Hives 11/14/19 Yes pregabalin Adverse Reaction Intermediate Hives 11/14/19 Yes sulfamethoxazole Adverse Reaction Intermediate Hives 11/14/19 Yes trimethoprim Adverse Reaction Intermediate Hives 11/14/19 Yes MEDS Medications: Current Medications Medications (Trade) Dose Ordered Sig/Conner Route PRN Reason Start Time Stop Time Status Last Admin Dose Admin Acetaminophen/ Hydrocodone Bitart (Lortab 10/325) 1 tab PRN Q3HRS PRN PO PAIN 11/21/19 09:00 11/21/19 21:02 Warfarin Sodium (Coumadin - No Dose Today) 1 each 1X WARF ONCE MC 11/21/19 16:00 11/21/19 16:01 DC 11/21/19 16:00 Bisacodyl (Dulcolax Tab) 10 mg PRN DAILY PRN PO CONSTIPATION 11/21/19 14:30 11/21/19 14:44 LAB Lab: Laboratory Tests Test 11/22/19 04:00 Hemoglobin 11.1 g/dL (12.0-15.5) L Hematocrit 33.8 % (36.0-47.0) L Mean Corpuscular Hemoglobin Concent 33 g/dL (31-37) Prothrombin Time 25.4 SEC (11.7-14.0) H Prothrombin Time INR 2.3 (0.8-1.1) H Laboratory Tests 11/22/19 04:00 Justicifation of Admission Dx: Justifications for Admission: Justification of Admission Dx: Yes (Severe nausea, adjusting pain medications and antiemetics, to achieve better pain control and also treat constipation) RISSA DE LUNA MD Nov 22, 2019 07:41
--- NOTE | 2019-11-22 09:48 | NUR ---
Patient this morning refused multiple medications this morning (see EMAR) stating they made her constipated and nauseous. Patient has had two BM's this morning as well. No complaints of nausea yet this AM. Pain elevated prior to breakfast but now manageable with the pain medication. Will continue to monitor.
--- NOTE | 2019-11-22 11:15 | NUR ---
Pharmacy Warfarin Dosing Note S:Pharmacy consulted to assist with anticoagulation therapy started 11/19/19 with target INR: 1.6 - 2.5 O:MARILEE DUENAS is a 64 year old F with TKA LABS: Last INR: 2.3 Last HGB: 11.1 Last HCT: 33.8 Last PLT: - Last dose of Hold given on 11/21/19 at 1600 Previous Regimen: Vitamin K given: N Drug Interaction Changes: Same Interacting Drug Ongoing Drug Interactions: CELEBREX A:INR of 2.3 is within desired range. Target range for this patient is: 1.6 - 2.5 P: Warfarin dose: 2 mg Prior to Discharge then 3mg daily Bridge Therapy: None Next INR due Monday at outpatient lab Pharmacy anticoagulation service will continue to follow. Kimberly Umana RPH, 11/22/19 1112
[2019-11-22] MEDS ORDERED: WARF3TAB50 PO (11:53)
[2019-11-22] MEDS ORDERED: WARFARIN 2 MG TABLET. PO ONE (13:00)
--- NOTE | 2019-11-22 14:21 | DISCH ---
DISCHARGE INSTRUCTIONS Condition on Discharge Condition on Discharge: Stable Activity After Discharge Activity Instructions for Disc: Activity as tolerated, Progressive ambulation Bathing Instructions: No Tub Bath until see Exercise Instruction after Dis: Exercise per therapy Driving Instructions after Dis: Do not drive Weight Bearing Status after Di: As tolerated Diet after Discharge Diet after Discharge: Regular Liquid Texture: Thin Liquid Wound Incision Care Wound/Incision Care: Ice to area for comfort, Do not change dressing Other wound/incision instructi: DO NOT change NAZ dressing. It remains in [facility] till your appointment Community/Resources/Services Services at Discharge: Outpatient Therapy Contacting the after DC Call your doctor for: Concerns you may have Follow-Up Follow Up With: Dr Beasley on December 01 at 10:15 am. [phone] Treatment/Equipment after DC Adaptive Equipment Issued: Walker Warfarin Follow-Up Warfarin Follow UP: Have your PT/INR drawn every Monday for four weeks. MJ BEASLEY MD Nov 22, 2019 14:21
[2019-11-22] MEDS ORDERED: HYDR-3135 PO (14:30)
--- NOTE | 2019-11-22 14:41 | DS ---
DATE OF DISCHARGE: 11/22/2019 PRINCIPAL DIAGNOSIS: Degenerative joint disease, left knee. PROCEDURE: Left total knee arthroplasty. DISPOSITION: Home with outpatient physical therapy at [facility] in [place]. ACTIVITY: Weightbearing as tolerated, standard total knee precautions, maintain NAZ dressing, call if saturated, uncontrolled pain, fever, chills or other problems. Follow up with Dr. Beasley in 2 weeks postoperatively. DISPOSITION MEDICATIONS: Include [place] 10/325 one p.o. q.4 hours p.r.n. pain, Coumadin as directed by anticoagulation clinic, currently 3 mg daily. Resume preoperative medications as indicated. BRIEF DESCRIPTION OF HOSPITAL COURSE: The patient underwent uncomplicated total knee arthroplasty. Postoperatively, was noted to have some difficulties with some extreme nausea at first that resolved and pain medications were adjusted to reasonable relief addressing her nausea and constipation issues. She progressed well with physical therapy on ambulation and transfers, remained medically stable throughout her stay and was discharged home in stable condition. MJ BEASLEY MD DR: LYNDA/benedict JOB#: [id number] / [id number]
--- NOTE | 2019-11-22 15:30 | NUR ---
Patient left the building with her around 1520. Discharge education completed with the patient and her by this nurse, the doctor, and therapy. Coumadin brought up by pharmacy prior to dismissal and education given. Script for lortab given to the patient. NAZ dressing instructions gone over in detail and NAZ was not changed per Dr Campos orders. Foam dressing C/D/I with an extra dressing sent home with patient just incase she starts bleeding again. No concerns noted at discharge.
[2019-11-23] MEDS ORDERED: WARFARIN 3 MG TABLET. PO SCH (16:00)
--- NOTE | 2019-11-26 11:00 | HP ---
ADMIT DATE: 11/19/2019 PREOPERATIVE HISTORY AND PHYSICAL This is dictated now as the initial physical that was just updated was noted to be out of date. PRINCIPAL DIAGNOSES: Degenerative joint disease, left knee and left knee pain. HISTORY OF PRESENT ILLNESS: The patient is continuing to have extreme limitations on her activities of daily living due to her left knee pain and degenerative disease. It is worse on startup, worse with activity and she is further limited by some lymphedema in bilateral lower extremities, which is managed by sequential pump type device and overall appears to have this under good control as she did at her previous clinic visit. PAST MEDICAL HISTORY: Significant for the lymphedema and acid reflux. PAST SURGICAL HISTORY: D and C, tonsillectomy and a cyst removal on her left hand. FAMILY HISTORY: She denies any significant family history. SOCIAL HISTORY: Denies smoking, alcohol or drug use. MEDICATIONS: [place], Celebrex, omeprazole, vitamin D3, tramadol, glucosamine chondroitin, and hydrochlorothiazide. ALLERGIES: INCLUDE PENICILLIN AND BACTRIM. REVIEW OF SYSTEMS: Significant for the left knee pain and continued good control of lymphedema. PHYSICAL EXAMINATION: VITAL SIGNS: Per admission sheet. HEENT: Atraumatic, normocephalic. HEART: Regular rate and rhythm. LUNGS: Clear to auscultation bilaterally. ABDOMEN: Benign. EXTREMITIES: She has full range of motion of her hip, knee and ankle joints. Antalgic gait. Left knee has slight varus medial compartment tenderness. She has some slight medial pseudolaxity but ligaments are otherwise stable. She has bilateral patellofemoral crepitus, mild joint line tenderness on the right. Normal alignment and stability of bilateral hips and ankles. Lymphedema is well controlled and no sign of any skin compromise or redness. IMPRESSION: Degenerative joint disease, left knee. TREATMENT PLAN: I had previously talked to her extensively about the risks, benefits, postoperative course of potential surgical treatment. She continues to have very significant and symptomatic degenerative arthritis in the left knee, unresponsive to nonoperative management and is very limiting to her activities of daily living. We had discussed possibility of infection, continued pain, premature wear or loosening, instability, medical or other anesthetic complications among others and although the lymphedema puts her at somewhat larger risk for wound complications, she is otherwise managing it well and she wishes to proceed with surgical evaluation and treatment. MJ GARCIA MD DR: LYNDA/benedict JOB#: [id number] / [id number]
== END 2019-11-22 15:30 | disposition home or self-care (01) | DRG 470 ==
LOC: SURG 10:07 → 4 SOUTHEST 11:34 → OBSVTOIN 15:47
PROVIDERS: ADMIT Orthopaedic Surgery; ATTEND Orthopaedic Surgery
PROC: 0SRD069 Replacement of Left Knee Joint with Oxidized Zirconium on Polyethylene Synthetic Substitute, Cemented, Open Approach (ICD-10-PCS; principal; 2019-11-19 11:30)
DX: M17.12 Unilateral primary osteoarthritis, left knee (principal); K59.00 Constipation, unspecified; Z96.652 Presence of left artificial knee joint; Z96.659 Presence of unspecified artificial knee joint; K21.9 Gastro-esophageal reflux disease without esophagitis; M19.90 Unspecified osteoarthritis, unspecified site; Z88.0 Allergy status to penicillin; Z82.0 Family history of epilepsy and other diseases of the nervous system; Z83.3 Family history of diabetes mellitus; Z88.2 Allergy status to sulfonamides; Z88.8 Allergy status to other drugs, medicaments and biological substances
CPT/HCPCS: 36415; 73560; 85014; 85018; 85610; 86850; 86900; 86901; 88305; 88311; A7015; C1713; G0378; G0379; J0171; J0690; J1100; J1170; J1885; J2250; J2270; J2405; J2704; J2795; J3010; J3370; J3490; J7030; 97116-GP; 97150-GP; 97530-GP; 97535-GO; 97537-GO; C1769

== ENCOUNTER → 2021-03-01 | Outpatient (CLI) | payer MEDICARE, BC ==
[~2021-03-01] MED LIST changes: +CELE400C PO; -CELECOXIB 100 MG CAPSULE. PO PRN; -DEXAMETHASONE SOD PHOS 4 MG/ML VIAL ONE; +FERR-36 PO; -GABAPENTIN 300 MG CAPSULE. PO PRN; +HYDR-3135 PO; -IV RINGERS,LACTATED 1000ML 1,000 ML IV SCH; -LIDOCAINE 2% PF 5 ML VIAL. ONE; -MORPHINE SULFATE 5 MG, KETOROLAC 30MG VIAL 30 MG, ROPIVacaine 0.5% PF 60 ML, EPINEPHrin... INT ART ONE; -OMEP40CA45 PO; +OMEP40CA7 PO; -ONDANSETRON PF 4 MG/2 ML VIAL. IV PRN; -ONDANSETRON PF 4 MG/2 ML VIAL. ONE; -PROCHLORPERAZINE 10 MG/2 ML VIAL. IV PRN; -PROPOFOL 10 MG/ML (20ML) VIAL. IV ONE; +WARF3TAB50 PO; +WARF5TAB2 PO
--- NOTE | 2021-03-01 17:36 | RAD ---
XR PELVIS 1-2V Clinical indications: Reason: SACROILIAC JOINT PAIN. ACUTE BILATERAL LOW BACK PAIN. / Spl. Instructio ns: / History: Findings: No acute fracture or dislocation or osteolytic process is evident. The hip joints are symm etric without arthritic change. 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 No er osive arthropathy is evident. No ankylosis of either SI joint is seen. IMPRESSION: No acute osseous abnormality is evident. Electronically signed by: Carlos Chung MD (03/01/2021 5:33 PM) [id number]
--- NOTE | 2021-03-01 19:07 | RAD ---
EXAM: AP, lateral and lumbosacral spot views of the lumbar spine DATE: 03/01/2021 4:40 PM INDICATION: Reason: SACROILIAC JOINT PAIN. ACUTE BILATERAL LOW BACK PAIN. SCIATICA PRESENT. / Spl. In structions: PULL THIS PATIENT FROM THE ER. CAME TO OUTPATIENT RAD WHEN CLOSING. / History: COMPARISON: No Prior FINDINGS: 5 nonrib-bearing lumbar-type vertebral bodies. Vertebral body heights are preserved. Disc heights are preserved. Mild L4-5 and L5-S1 facet joint degenerative change. No acute fracture. IMPRESSION: 1. Negative acute fracture or subluxation Electronically signed by: Quan Gomez MD (03/01/2021 7:05 PM) [email or web address]
== END ==
LOC: RAD 16:14
PROVIDERS: ATTEND Family Medicine
DX: M47.817 Spondylosis without myelopathy or radiculopathy, lumbosacral region (principal); M54.30 Sciatica, unspecified side; M53.3 Sacrococcygeal disorders, not elsewhere classified; M54.50 Low back pain, unspecified
CPT/HCPCS: 72100; 72170